=== PATIENT | female | born 1995 | race African-American/Black ===

== ENCOUNTER 2022-10-02 18:52 | Emergency (ER) | payer OTHER ==
[~2022-10-02] VITALS: Ht 162.6 cm; Wt 69.0 kg
[2022-10-02 19:01] VITALS: BP 134/93
== END 2022-10-02 23:23 | disposition left against medical advice (07) ==
LOC: EDBD 18:52 → ER 18:52
DX: H92.02 Otalgia, left ear (principal); Z53.21 Procedure and treatment not carried out due to patient leaving prior to being seen by health care provider
CPT/HCPCS: 99281

== ENCOUNTER 2023-05-29 06:46 | Emergency (ER) | payer MEDICAID, OTHER ==
[~2023-05-29] VITALS: Ht 162.6 cm; Wt 69.0 kg
[2023-05-29 06:56] VITALS: O2SAT 99
[2023-05-29] MEDS ORDERED: METH-653 MT (08:35)
[2023-05-29] MEDS ORDERED: IBUPROFEN 600MG TABLET PO ONE (08:45)
[2023-05-29 08:52] VITALS: BP 128/74; PULSE 91; RESP 16; TEMP 98.5
== END 2023-05-29 08:53 | disposition home or self-care (01) ==
LOC: ER 06:46
DX: M54.50 Low back pain, unspecified (principal)
CPT/HCPCS: 99283

== ENCOUNTER 2023-07-10 19:15 | Emergency (ER) | payer MEDICAID ==
[~2023-07-10] VITALS: Ht 162.6 cm; Wt 71.0 kg
[~2023-07-10 19:15] MED LIST: METH-653 MT
[2023-07-10 19:22] VITALS: O2SAT 98
[2023-07-10] MEDS ORDERED: ACET-2708 MT (20:42)
[2023-07-10] MEDS ORDERED: AMOX1TAB16 MT (20:42)
[2023-07-10] MEDS ORDERED: KETOROLAC 30MG/ML VIAL IM ONE (20:45)
[2023-07-10 20:58] VITALS: BP 122/78
[2023-07-10 21:38] VITALS: PULSE 83; RESP 18; TEMP 99.3
== END 2023-07-10 21:40 | disposition home or self-care (01) ==
LOC: ER 19:15
DX: H66.91 Otitis media, unspecified, right ear (principal)
CPT/HCPCS: 99283; 81025; 96372; J1885

== ENCOUNTER 2023-07-16 07:45 | Emergency (ER) | payer MEDICAID ==
[~2023-07-16] VITALS: Ht 162.6 cm; Wt 68.0 kg
[~2023-07-16 07:45] MED LIST changes: +ACET-2708 MT; +AMOX1TAB16 MT
[2023-07-16 07:53] VITALS: BP 120/75; PULSE 80; RESP 18; TEMP 97.5; O2SAT 100
[2023-07-16] MEDS ORDERED: TOPUD PO (08:39)
== END 2023-07-16 08:58 | disposition home or self-care (01) ==
LOC: ER 08:33
DX: H92.01 Otalgia, right ear (principal)
CPT/HCPCS: 99282

== ENCOUNTER 2024-07-17 06:58 | Emergency (ER) | payer BC, OTHER ==
[~2024-07-17] VITALS: Ht 162.6 cm; Wt 70.0 kg
[~2024-07-17 06:58] MED LIST changes: +TOPUD PO
[2024-07-17 07:23] VITALS: TEMP 37.1; O2SAT 100; O2SAT 98
[2024-07-17 08:58] LABS: CLARITY URINE CLEAR (CLEAR); COLOR URINE YELLOW (YELLOW); GLUCOSE URINE NEGATIVE (NEGATIVE); KETONES URINE NEGATIVE (NEGATIVE); LEUKOCYTE ESTERASE URINE NEGATIVE (NEGATIVE); NITRITE URINE NEGATIVE (NEGATIVE); OCCULT BLOOD URINE NEGATIVE (NEGATIVE); PROTEIN URINE NEGATIVE (NEGATIVE); SPECIFIC GRAVITY URINE 1.015 (1.005-1.030); UROBILINOGEN URINE 0.2 E.U./dL (0.2-1.0)
[2024-07-17 09:25] LABS: UCG SCREEN NEGATIVE
[2024-07-17] MEDS: ACETAMINOPHEN 500MG TABLET PO ONE (10:30)
[2024-07-17] MEDS ORDERED: ACET-2708 MT (11:01)
[2024-07-17] MEDS ORDERED: LIDO700A15 TP (11:01)
[2024-07-17 11:41] VITALS: BP 122/76; PULSE 76; RESP 16
[2024-07-17] MEDS: KETOROLAC 30MG/ML VIAL IM ONE (11:41)
== END 2024-07-17 11:45 | disposition home or self-care (01) ==
LOC: ER 06:58
DX: M54.6 Pain in thoracic spine (principal)
CPT/HCPCS: 99283; 81003; 81025; 96372; J1885